=== PATIENT | male | born 1945 | race Caucasian/White ===

== ENCOUNTER 2016-03-20 13:10 | Inpatient (IN) | payer OTHER ==
--- NOTE | ~2016-03-20 | DS ---
Discharge Summary [facility] [address] [place]. [address] NAME: ROLAN FERNANDEZ JR : 47 STATUS : DIS IN PAT#: [id number] AGE: 71 ADM/REG DATE : 03/20/16 MR#: [id number] REPORT SERV DATE: 04/19/16 DICTATED BY: CHATO COLEY DATE: 04/18/16 REPORT STATUS : Draft TRANSCRIBED BY: YAW DATE: 04/18/16 Data Collection from hospitalization DISCHARGE DIAGNOSES: 1. Encephalopathy-multifactorial. 2. History of multiple sclerosis. 3. Parkinsonism. 4. Generalized weakness. 5. Anemia secondary to chronic disease. 6. Severe protein-calorie malnutrition, status post PEG tube placement. 7. Hypertension-controlled. 8. Anxiety and depression. 9. Aspiration pneumonia. CONSULTATIONS: Dr. Julian Phan. KELLY Balderas PROCEDURES: 1. Under GI endoscopy and PEG tube placement, 03/27/2016. 2. CT scan of the brain without contrast, 03/20/2016. 3. MRI of the cervical spine without contrast, 03/24/2016. DISCHARGE MEDICATIONS: Abilify 15 mg at bedtime; liquid tears two drops in each eye daily; Sinemet one tablet at 8 a.m., noon 4 p.m. and 8 p.m.; vitamin D3 1000 units twice a day; Cardura 4 mg daily; Lexapro 15 mg daily; heparin 5000 units subcutaneously every eight hours; multivitamins one tablet daily; Prilosec 40 mg daily as instructed; Tylenol 650 mg orally or rectally as needed; Colace 100 mg twice a day as needed; MiraLAX powder one packet daily as needed; Ultram 50 mg every six hours as needed; Catapres 0.1 mg every eight hours as needed. CONDITION ON DISCHARGE: Stable. DISPOSITION: The patient was discharged to [facility] on tube feedings with activities as instructed. HOSPITAL COURSE: This is a 71-year-old man, who was transferred from [facility] to the [facility] emergency room with the chief complaint of an altered mental status. He has been residing at [facility], where he is followed by [facility] for multiple medical problems. He had had a slow decline over time. He was noted to have increasing weakness and an altered mental status and was transferred to the [facility] emergency room. Workup revealed questionable urinary tract infection along with this altered mental status. He was admitted to the hospital at this time for further evaluation and treatment. Upon admission, he was started on IV antibiotics. IV fluids were begun. DVT precautions were in place. The head of his bed was elevated. The following day, he was seen by Dr. Julian Phan. A CT scan of the brain without contrast had been performed. This demonstrated generalized atrophy, but no clear acute process was seen. We have been asked to evaluate the patient's altered mental status and multiple sclerosis. He was diagnosed with multiple Discharge Summary [place] [id number] [facility] [place]. [address] NAME: ROLAN FERNANDEZ : 47 STATUS : DIS IN PAT#: [id number] AGE: 71 ADM/REG DATE : 03/20/16 MR#: [id number] REPORT SERV DATE: 04/19/16 DICTATED BY: CHATO COLEY DATE: 04/18/16 REPORT STATUS : Draft TRANSCRIBED BY: YAW DATE: 04/18/16 sclerosis about 20 years ago. He had been placed on Avonex and did not appear to have any changes in multiple sclerosis management over the years. This has apparently managed by Dr. Sung, who is not a neurologist. His multiple sclerosis was initially diagnosed by a neurologist, although the patient had not followed up recently with any neurologist and did not appear to have any recent MRI evaluation. Urinalysis demonstrated large leukocyte esterase and negative nitrite. His encephalopathy was felt likely multifactorial. It was felt that his baseline mental status had likely worsened by his recent urinary tract infections. An MRI of the brain with and without contrast was requested for evaluation of the patient's multiple sclerosis. We would also check vitamin B12, TSH, free T4, folate, ammonia, and procalcitonin level. It was recommended that he follow up with Neurology as an outpatient. Avonex was continued. Following day, he denied any complaints of pain. He said he still felt very weak. He has severe protein-calorie malnutrition. Blood pressure was stable. He was evaluated by Physical Therapy. Speech/Language Pathology performed a bedside swallow study. Aspiration precautions were in place. His T-max was 99.8. Aricept was going to be given at bedtime. He became combative when we attempted to get an MRI of the brain. Rocephin was continued. Valium was being given three times a day. Aricept was continued. On 03/24/2016, he seemed to be more alert and conversant. Valium was stopped. Sinemet was being provided. An MRI of the cervical spine without contrast was performed. The next day, it seem like he may have slightly better movement of the bilateral upper extremities and left lower extremity. Sinemet was increased. Aricept was continued. The MRI of the cervical spine showed no significant spinal cord abnormality. Oral intake was still very poor. On 03/26/2016, he was seen by Eric Nava for evaluation and management regarding PEG tube placement. He had had a decreased appetite and was not eating. He had not recovered with his appetite and he continued to lose weight. It was felt that he may need a PEG tube for alternative means of nutrition. The patient agreed to have a PEG tube placed. He is on Levaquin for his urinary tract infection, which was felt to be adequate coverage for preprocedure antibiotics. Plans would be made to place the PEG tube the following day. Heparin was held. On 03/27/2016, he was taken to the endoscopic suite by Dr. Leroy Harden, where he underwent upper GI endoscopy with PEG tube placement. He tolerated this well and there were no complications. He was found to have nonbleeding erosive gastropathy and duodenitis. He had successful PEG tube placement. He did have some gasping respirations alternating with minimal respirations and coarse rhonchi. Sinemet was continued. Neupro patch was going to be added. Aricept was continued as well as Levaquin. Following day, he had some oral dyskinesia after starting Neupro patch. There was no improvement in rigidity. It was felt that he was most likely close to his baseline. The head of his bed was kept elevated at all times. Daily dressing changes were being performed and he had pain all over. He said pain medication was effective. He was completing his IV Levaquin. His antibiotic was changed to Zosyn. Blood cultures were negative. He was tolerating his tube feedings. DVT prophylaxis and fall precautions were in place. He was not even attempting to speak at this time. Palliative care was discussed with the patient's family. Tube feedings were continued via the PEG tube. On 04/07/2016, he still had tremors, but that were slightly better. He could answer yes or no, but not consistently. Requip was increased. Zosyn was continued. The patient does not tolerate dopamine agonists. He had failed Neupro and now Requip. On 04/09/2016, he still had limited verbal communication secondary to his decreased mental status and weakness. He was tolerating tube Discharge Summary [address] [place]. [address] NAME: ROLAN FERNANDEZ JR : 47 STATUS : DIS IN PAT#: [id number] AGE: 71 ADM/REG DATE : 03/20/16 MR#: [id number] REPORT SERV DATE: 04/19/16 DICTATED BY: CHATO COLEY DATE: 04/18/16 REPORT STATUS : Draft TRANSCRIBED BY: YAW DATE: 04/18/16 feedings. IV Protonix was changed to dosing via the PEG tube. His blood pressure had increased over the last 12 hours. Requip was stopped. CD/LD was increased. On 04/10/2016, he seemed to be more awake, but he was still not talking or even attempting to talk. H and H remained stable. Blood pressure was under better control. He completed his IV Zosyn that day. Discharge instructions were given. Due to his improved and stable condition, he was discharged to [facility] with the above-stated instructions. Information collected by: Damaris Melendrez I submit the above information as my discharge summary. JOSÉ MIGUEL/YAW Chato Coley M.D. / [id number] CC: Jeff Lal M.D. [facility] KELLY Balderas
--- NOTE | ~2016-03-20 | EGD ---
EGD REPORT [facility] [address] [place] [address] NAME: JOAO FERNANDEZ JR : 47 STATUS : ADM IN PAT#: [id number] AGE: 71 ADM/REG DATE : 03/20/16 MR#: [id number] REPORT SERV DATE: 03/27/16 DICTATED BY: LEROY DOUGHERTY DATE: 03/27/16 REPORT STATUS : Draft TRANSCRIBED BY: [facility] DATE: 03/27/16 Endoscopy Center Patient Name: Joao Fernandez Date of : 1945 Attending MD: LEROY DOUGHERTY MD Procedure Date No Time: 03/27/2016 Procedure: Upper GI endoscopy Indications: Place PEG because patient is unable to eat, Place PEG due to impaired swallowing, Place PEG due to aspiration risk Medicines: Monitored Anesthesia Care Complications: No immediate complications. Estimated blood loss: Minimal. Procedure: Pre-Anesthesia Assessment: - ASA Grade Assessment: III - A patient with severe systemic disease. After obtaining informed consent, the endoscope was passed under direct vision. Throughout the procedure, the patient's blood pressure, pulse, and oxygen saturations were monitored continuously. The GIF [id number] was introduced through the mouth, and advanced to the second part of duodenum. The upper GI endoscopy was accomplished without difficulty. The patient tolerated the procedure well. Findings: The examined esophagus was normal. Multiple localized, small non-bleeding erosions were found in the gastric antrum. There were no stigmata of recent bleeding. The patient was placed in the supine position for PEG placement. The stomach was insufflated to appose gastric and abdominal malik. A site was located in the body of the stomach with good transillumination and manual external pressure for placement. The abdominal wall was marked and prepped in a sterile manner. The area was anesthetized with 5 mL of 1% lidocaine. The trocar needle was introduced through the abdominal wall and into the stomach under direct endoscopic view. A snare was introduced through the endoscope and opened in the gastric lumen. The guide wire was passed through the trocar and into the open snare. The snare was closed around the guide wire. The endoscope and snare were removed, pulling the wire out through the mouth. A skin incision was made at the site of needle insertion. The externally removable 20 Fr EndoVive Safety gastrostomy tube was lubricated. The G-tube was passed over the guide wire through the mouth, and into the stomach. The trocar needle was removed, and the gastrostomy tube was pulled out from the stomach through the skin. The guide wire was removed, and the external bumper attached to the EGD REPORT [address] [place]. [address] NAME: JOAO FERNANDEZ : [birth year] STATUS : ADM IN [facility]#: [id number] AGE: 71 ADM/REG DATE : 03/20/16 MR#: [id number] REPORT SERV DATE: 03/27/16 DICTATED BY: LEROY DOUGHERTY DATE: 03/27/16 REPORT STATUS : Draft TRANSCRIBED BY: [email or web address] DATE: 03/27/16 gastrostomy tube. The feeding tube was then cut to an appropriate length. The final position of the gastrostomy tube was confirmed by relook endoscopy, and skin marking noted to be 2 cm at the external bumper. The final tension and compression of the abdominal wall by the PEG tube and external bumper were checked and revealed that the bumper was loose and lightly touching the skin. The feeding tube was capped, and the tube site was cleaned and dressed. Estimated blood loss was minimal. Localized mild inflammation characterized by congestion (edema), erosions and erythema was found in the duodenal bulb. Impression: - Non-bleeding erosive gastropathy. - Duodenitis. - An externally removable PEG placement was successfully completed. Recommendation: - Return patient to hospital calles for ongoing care. - Protonix 40 mg daily x 4 weeks - Please follow the post-PEG recommendations including: Nutrition consult for formula and volume, antibiotic ointment to site, change dressing once per day, clean site with soap and water daily and dry thoroughly, remove dressing after 2 weeks, NPO x4 hrs then water today, may use PEG today for meds and water and may use PEG tomorrow for feedings. Procedure Code(s): --- Professional --- 61378, Esophagogastroduodenoscopy, flexible, transoral; with directed placement of percutaneous gastrostomy tube Diagnosis Code(s): --- Professional --- K31.9, Disease of stomach and duodenum, unspecified K29.80, Duodenitis without bleeding R63.3, Feeding difficulties Z43.1, Encounter for attention to gastrostomy R13.10, Dysphagia, unspecified CPT copyright 2013 [employer]. All rights reserved. The codes documented in this report are preliminary and upon rug cleaner hand review may be revised to meet current compliance requirements. Leroy Dougherty MD LEROY DOUGHERTY MD 03/27/2016 10:24 AM EGD REPORT [facility] [address] [place] [address] NAME: JIMJOAO SCHAFFER : 47 STATUS : ADM IN PAT#: [id number] AGE: 71 ADM/REG DATE : 03/20/16 MR#: [id number] REPORT SERV DATE: 03/27/16 DICTATED BY: LEROY DOUGHERTY DATE: 03/27/16 REPORT STATUS : Draft TRANSCRIBED BY: [email or web address] DATE: 03/27/16 This report has been signed electronically. Number of Addenda: 0 Note Initiated On: 03/27/2016 9:48 AM Scope Withdrawal Time 0 hours 0 minutes 0 seconds [address] [place] [address]
--- NOTE | ~2016-03-20 | CN ---
Consultation Report [facility] [address] [place]. [address] NAME: ROLAN FERNANDEZ JR : 47 STATUS : ADM IN PAT#: [id number] AGE: 71 ADM/REG DATE : 03/20/16 MR#: [id number] REPORT SERV DATE: 03/26/16 DICTATED BY: SARAN ESPINOZA DATE: 03/26/16 REPORT STATUS : Draft TRANSCRIBED BY: MODL DATE: 03/26/16 GI CONSULTATION DATE OF CONSULTATION: 03/26/2016 REASON FOR CONSULTATION: Evaluation and management of the patient for PEG tube placement. HISTORY OF PRESENT ILLNESS: Please note the history of present illness has been gathered from the chart as well as the patient's primary nurse. Mr. Fernandez is a 71-year-old male patient, who has been seen by Dr. Ken Geronimo in the past, who was brought to [facility] on 03/20 with a chief complaint of altered mental status from baseline. He has a history of multiple sclerosis. He had been residing in a long-term facility. He was requiring assistance with all of his activities of daily living. However, per reports from his sister, he had been able to ambulate with a walker up until 10/2015. Then, he had a motorized wheelchair. Since that time, he has been basically wheelchair bound with assistance in all activities of daily living. He was found to have a urinary tract infection, decreased appetite, not eating. He was diagnosed here with urinary tract infection. He has not recovered with his appetite and continues to lose weight. Therefore, GI was consulted to place a PEG tube for alternative means of nutrition. I have seen Mr. Fernandez. He is hard to arouse. He agrees to a PEG tube; however, we have tried to contact his sister with no answer. We will tentatively plan on placing PEG tube tomorrow. He is on Levaquin for his urinary tract infection, which is adequate coverage for preprocedure antibiotics; we will leave him on that. PAST MEDICAL HISTORY: Positive for multiple sclerosis, hypertension, depression, debilitation, urinary tract infection, hiatal hernia. PAST SURGICAL HISTORY: Gallbladder. SOCIAL HISTORY: A resident of [place]. No alcohol, tobacco, or illicits noted. Sister is power of corporate attorney. FAMILY HISTORY: Unable to be assessed. REVIEW OF SYSTEMS: Unable to be obtained secondary to the patient's somewhat somnolent status. PERTINENT LABORATORY DATA: Sodium 138, potassium 3.8, BUN is 12, creatinine 0.52. White count 8, hemoglobin 11.4, hematocrit 34.2, platelet count 241. INR 1.2. PHYSICAL EXAMINATION: VITAL SIGNS: Temperature 97.6, pulse 80, respirations 18, and blood pressure 119/68. NEURO: Reveals a chronically debilitated male, resting in bed, who awakens with much prompting. Consultation Report [place] [address] [place]. [address] NAME: ROLAN FERNANDEZ JR : [birth year] STATUS : ADM IN PAT#: [id number] AGE: 71 ADM/REG DATE : 03/20/16 MR#: [id number] REPORT SERV DATE: 03/26/16 DICTATED BY: SARAN ESPINOZA DATE: 03/26/16 REPORT STATUS : Draft TRANSCRIBED BY: YAW DATE: 03/26/16 GENERAL: He is still uncooperative, in no obvious distress. He has notable tremors in the left upper extremity. Debilitated, frail, and cachectic in appearance. HEAD, EARS, EYES, NOSE, AND THROAT: Anicteric. Pupils equal, round, reactive to light and accommodation. Mouth is dry with caking noted in his oral cavity. NECK: No JVD. No palpable nodes. LUNGS: Coarse. Normal respiratory effort exhibited. CARDIOVASCULAR SYSTEM: Regular rate and rhythm. ABDOMEN: Soft, flat, nontender, nondistended. Hypoactive bowel sounds. EXTREMITIES: No edema. Normal distal pulses. SKIN: Warm, dry, and intact. ASSESSMENT: 1. Failure to thrive, debility, weight loss, poor p.o. intake, needs for supplemental nutrition. 2. Encephalopathy, multifactorial. 3. History of multiple sclerosis with generalized weakness, progressively worsened. 4. Urinary tract infection. PLAN: 1. PEG tube on 03/27. 2. He is already on Levaquin, therefore, no other preprocedure antibiotics will be needed. 3. We will consult Nutrition to see for tube feeding recommendations. 4. Hold heparin. CLAY/YAW Saran KELLY Nava / [id number] CC: Jeff Lal M.D.
--- NOTE | ~2016-03-20 | CN ---
Consultation Report [facility] [address] [place]. [address] NAME: ROLAN FERNANDEZ JR : 47 STATUS : ADM IN PAT#: [id number] AGE: 71 ADM/REG DATE : 03/20/16 MR#: [id number] REPORT SERV DATE: 03/22/16 DICTATED BY: DATE: REPORT STATUS : Draft TRANSCRIBED BY: MODL DATE: 03/21/16 NEUROLOGY CONSULTATION DATE OF CONSULTATION: 03/21/2016 REASON FOR CONSULT: Altered mental status, evaluate patient's multiple sclerosis. HISTORY OF PRESENT ILLNESS: This is a 71-year-old male who is not aware of why he is in the hospital and is unable to answer questions. History was obtained through telephone interview with the patient's sister. The patient resides in the long-term facility. The patient requires assistance with activities of daily living secondary to patient's debilitated ability to move hands and difficulties with locomotion. The patient's sister reports the patient is up until August to October of 2015, was able to ambulate with a walker. On 10/2015, the patient obtained motorized wheelchair and since then the patient was mostly wheelchair bound, currently required assistance to move from bed to wheelchair. Is apparently unable to ambulate by himself. The patient, however, baseline, is still able to communicate with the people and is able to answer questions mostly appropriately. The patient, however, was noted by family members at times to have difficulties remember questions and asked questions multiple times at times but does not appear to be severe. The patient, however, over the past few days was noted to be increasingly disoriented and confused and was noted to have stopped eating with decreased appetite, as a result the patient was transferred from assisted living facility to hospital for further evaluation. No reports of fever or chill is otherwise noted. The patient's family member does report the patient has a longstanding tremor that seems to be progressively worse. The family described the tremor mostly occur while the patient was holding on to items, trying to get food to his mouth as well as when pointing to stuff, pointing or reaching for items. The patient's tremor again seems to be getting worse to the point the skilled living facility has now changed the patient's diet to mostly finger foods, so the patient can grab the food without utensils. The patient, otherwise, has been diagnosed with multiple sclerosis roughly 20 years ago. It was unclear when patient's last MRI was. The patient was placed on Avonex and does not appear to have any changes in MS management over the years. The patient's MS is apparently managed by Dr. Sung, who is not a neurologist. The patient's MS was initially diagnosed by a neurologist. Although, the patient has not followed up recently with any neurologist and does not appear to have any recent MRI evaluation, we will follow up for severity and/or progression of MS. PAST MEDICAL HISTORY: The patient's past medical history is otherwise significant apparently for depression as well as multiple sclerosis for which the patient has not had appropriate follow up. FAMILY HISTORY: Unable to be obtained secondary to patient's mental status. REVIEW OF SYSTEMS: Negative except for those mentioned in the HPI. Consultation Report [place] [id number] [facility] [place]. [address] NAME: ROLAN FERNANDEZ JR : 47 STATUS : ADM IN PAT#: [id number] AGE: 71 ADM/REG DATE : 03/20/16 MR#: [id number] REPORT SERV DATE: 03/22/16 DICTATED BY: DATE: REPORT STATUS : Draft TRANSCRIBED BY: MODL DATE: 03/21/16 SOCIAL HISTORY: No reports of tobacco alcohol or recreational drug usage was otherwise reported by family members or by patient. ALLERGIES: THE PATIENT WAS NOTED TO HAVE NO KNOWN DRUG ALLERGIES. HOME MEDICATIONS: Abilify, vitamin D, Colace, Cardura, Lexapro, Avonex, Provigil, Red Yeast capsule, and multivitamin. PHYSICAL EXAMINATION: VITAL SIGNS: Overnight, the patient was noted to have vital signs with T-max of 98.5, heart rate of 73 to 93, respiration of 15 to 22, and blood pressure of 110 to 137 over 57 to 65. GENERAL: The patient is well developed, well nourished, in no acute distress. CARDIOVASCULAR: Regular rate and rhythm. No carotid bruits were otherwise auscultated. PULMONARY: Clear to auscultation bilaterally. NEUROLOGICAL: Generally, the patient alert, oriented to self as well as knows that he is in the hospital. He is oriented to year, otherwise is disoriented regarding month. The patient was noted to be dysarthric and was noted to have difficulties reporting why he is in the hospital. The patient was noted to have psychomotor retardation, bradykinesia. The patient was noted to have decreased attention span at the time of evaluation, is only able to follow simple commands, unable to follow complex commands. Mild dysarthria was also noted at the time of evaluation. Cranial nerves II through XII. Pupils equal, round, and reactive to light. Horizontal and vertical eye movement appeared to be intact with blink-to threat response at the time of evaluation. Facial expression is asymmetrical at the time of evaluation. The patient appeared to have intact sensation to noxious stimulation applied in bilateral jaw. Also, the patient's tongue appeared to be deviated towards the right, palatal movement also is symmetric. The patient appeared to have mild difficulties with hearing. The patient noted to have weakness in bilateral upper extremity, roughly 3/5 in bilateral upper extremity proximally, 4+/5 bilateral upper extremity distally. The patient's right side appeared to be worse than the left side. The patient, in addition, was noted to have 1/5 right lower extremity strength and 3/5 left lower extremity at its strength at the time of evaluation. MUSCULOSKELETAL: Generalized increased muscle tone was noted at the time of evaluation. The patient appeared to have intact sensation to bilateral upper extremity and left lower extremity. Deep tendon reflex was hyperreflexic throughout. Upgoing toe on bilateral plantar reflexes. Coordination and gait were unable to be evaluated due to the patient's difficulty following commands and comprehension difficulties. LABORATORY STUDIES: Demonstrated white blood cell count of 7.5, hemoglobin of 11.2, hematocrit of 34.4, and platelet count of 231. Chemistry Panel: Sodium 141, potassium 3.7, chloride 106, bicarb 25, BUN of 19, creatinine of 0.60, glucose of 69, calcium of 8.9. Urinalysis demonstrated large leukocyte esterase and negative nitrite. CT scan of the brain otherwise demonstrated generalized atrophy, but no clear acute process was seen. Consultation Report [address] [place]. [address] NAME: ROLAN FERNANDEZ : 47 STATUS : ADM IN [facility]#: [id number] AGE: 71 ADM/REG DATE : 03/20/16 MR#: [id number] REPORT SERV DATE: 03/22/16 DICTATED BY: DATE: REPORT STATUS : Draft TRANSCRIBED BY: MODL DATE: 03/21/16 IMPRESSION: 1. Encephalopathy, likely multifactorial. The patient apparently was noted to have some baseline mild memory difficulties that appeared to be more episodic. The patient's baseline mental status is likely worsened by recent UTI. In addition, we will also check MRI of the brain with and without contrast for evaluation of the patient's multiple sclerosis. We will also check laboratory study including vitamin B12, TSH, free T4, folate, ammonia, and procalcitonin level. We will recommend outpatient followup with Neurology afterwards. 2. Multiple sclerosis with associated weakness recently likely secondary to recent urinary tract infection. We will also check MRI of the brain as well as MRI C-spine and T- spine with and without contrast. Meanwhile we are recommending continue Avonex .. RECOMMENDATION: 1. MRI of the brain with and without contrast. 2. MRI of C-spine and T-spine with and without contrast. 3. Vitamin B12, folate, TSH, free T4, thiamine, ammonia, procalcitonin level with morning labs. 4. Continue Avonex for now. 5. UTI treatment as per primary team. [facility]/MODL Julian Phan MD / [id number] CC: Jeff Lal M.D.
--- NOTE | ~2016-03-20 | HP ---
History And Physical [place] [id number] [facility] [place]. [address] NAME: ROLAN FERNANDEZ JR : 47 STATUS : ADM IN PAT#: [id number] AGE: 71 ADM/REG DATE : 03/20/16 MR#: [id number] REPORT SERV DATE: 03/21/16 DICTATED BY: CHATO COLEY DATE: 03/21/16 REPORT STATUS : Draft TRANSCRIBED BY: MODGemini DATE: 03/21/16 DATE OF ADMISSION: 03/20/2016 CHIEF COMPLAINT: Altered mental status. HISTORY OF PRESENT ILLNESS: A 71-year-old white male, transferred from [facility] to [facility] for the above complaint. Due to the patient's decreased mental status, full history and physical exam was unable to be obtained. Chart and staff were reviewed. The patient has been residing at [facility] where he is followed by [facility] for multiple medical problems. Please see old records. The patient has been having a slow decline over time. They state he was noted to have increasing weakness and altered mental status, therefore he was transferred to [facility] Emergency Room. Workup there revealed questionable UTI along with altered mental status, therefore the patient was admitted for IV antibiotics, neurological consult, and further medical workup. The patient's friend was present to assist with the history. Of note is that the patient has been having a slow decline over time, and although he has a diagnosis of multiple sclerosis, he has had no formal good neurological workup according to his friend. Otherwise, no fever or chills, no nausea or vomiting, has had normal decent intake and currently their biggest concern is placing the patient in a higher level of care at the time of discharge, as his sister, [id number], would like to move him closer to her. ALLERGIES: NO KNOWN DRUG ALLERGIES. MEDICATIONS: Please see MAR. PAST MEDICAL HISTORY: No old records were available here at [facility], but chart review does show the patient has his diagnosis of hypertension, some edema, depression, multiple sclerosis, overall debilitation, hiatal hernia, and frequent UTIs. PAST SURGICAL HISTORY: Gallbladder removal in 2016. SOCIAL HISTORY: The patient resides at [place], is followed by [facility], , [employer], no smoking or drinking. His sister is his power of attorney recruiter and does assist with his care. FAMILY HISTORY: Unable to obtain due to the patient's decreased mental status. REVIEW OF SYSTEMS: Unable to obtain due to the patient's decreased mental status. PHYSICAL EXAMINATION: History And Physical [address] [place]. [address] NAME: ROLAN FERNANDEZ JR : 47 STATUS : ADM IN PAT#: [id number] AGE: 71 ADM/REG DATE : 03/20/16 MR#: [id number] REPORT SERV DATE: 03/21/16 DICTATED BY: CHATO COLEY DATE: 03/21/16 REPORT STATUS : Draft TRANSCRIBED BY: YAW DATE: 03/21/16 VITAL SIGNS: Blood pressure 137/63, pulse 90, respirations 20, temperature 97.7, weight 54 kg. GENERAL: White male, sitting up in bed at this time. Being fed by his friend. HEAD: Normocephalic, atraumatic. EYES: Anicteric. ENT: Fair dentition with moist mucosa. NECK: Cachectic. LUNGS: CTA without RRW. HEART: Regular rate and rhythm without murmurs, gallops, or rubs. ABDOMEN: Soft, positive bowel sounds, nontender, nondistended. EXTREMITIES: Wasting is present. NEUROLOGIC: The patient with minimal cooperation with exam, but is able to move all extremities. Does occasionally mumble some words, but is not appropriate. SKIN: Warm and dry, otherwise. LABORATORY DATA: CBC shows WBC 8.6, H and H 12 and 35.4, PLT 244. INR 1.2. Chemistry shows Na 145, K 3.7, CO 105. CO2 of 27, BUN 21, creatinine 0.6, GFR 101, glucose 116. Cardiac enzymes negative. Lactate is 0.9. Urinalysis done by clean catch shows cloudy urine with many white cells and many bacteria. IMAGING DATA: CT of the brain showed no acute infarct or hemorrhage with mild atrophy and chronic white matter changes. Portable chest x-ray done in emergency room shows no acute process. COUNSELING: We will call family-his sister and talk to her. Also talked to his friend here in hospital. CONSULTATION: We will consult Neurology for further evaluation. IMPRESSION: 1. Encephalopathy-questionable etiology. 2. Weakness. 3. History of multiple sclerosis by chart review. 4. Anemia of chronic disease. 5. Pyuria-questionable true urinary tract infection. 6. Severe protein calorie malnutrition. 7. Hypertension. 8. Gait impairment. 9. Gastroesophageal reflux disease. 10.Debilitation. PLAN: 1. We will follow the patient's symptoms, initiate antibiotics and IV fluids. Questionable cause for his encephalopathy. We will follow symptoms and see if it improves. 2. Question reason for his weakness, but have to suspect if he truly does have MS, it may History And Physical [address] [address] NAME: ROLAN FERNANDEZ JR : 47 STATUS : ADM IN PAT#: [id number] AGE: 71 ADM/REG DATE : 03/20/16 MR#: [id number] REPORT SERV DATE: 03/21/16 DICTATED BY: CHATO COLEY DATE: 03/21/16 REPORT STATUS : Draft TRANSCRIBED BY: YAW DATE: 03/21/16 be secondary to his disease. We will follow symptoms and watch closely as the patient is at risk for falls. 3. Watch H and H as the patient is hydrated. He is at risk for acute coronary syndrome with decreased H and H. 4. Follow up on urinalysis, but wonder if clean catch urine is truly not contaminated. We will continue antibiotics and watch closely as the patient is at risk for sepsis. 5. Control blood pressure. He is at risk for CVA. 6. We will consult Neurology for evaluation of his diagnosis of multiple sclerosis, as according to the family, the patient has really had no true neurological workup. 7. Head of bed at 30 degrees as he is at risk for aspiration. 8. DVT precautions. RH/MODL Chato Coley M.D. / [id number] CC: Jeff Lal M.D.
[2016-03-20] MEDS ORDERED: RED YEAS1 PO (13:57)
[2016-03-20] MEDS ORDERED: MULTIPLE VIT PO (13:58)
[2016-03-20] MEDS ORDERED: PROVIGIL2 PO (13:58)
[2016-03-20] MEDS ORDERED: CARDU4 PO (13:58)
[2016-03-20] MEDS ORDERED: VITAMIN D31000 UNIT PO (13:59)
[2016-03-20] MEDS ORDERED: D-MANNOSE PO (13:59)
[2016-03-20] MEDS ORDERED: DSS PO (14:00)
[2016-03-20] MEDS ORDERED: ABILIFY15 PO (14:00)
[2016-03-20] MEDS ORDERED: LEXAPRO10 PO (14:01)
[2016-03-20] MEDS ORDERED: AVONEX IM (14:01)
[2016-03-20 14:15] LABS: BASOPHILS 0.1 %; BASOPHILS ABSOLUTE 0.01 10/3/uL (0.0-0.16); EOSINOPHILS 0.1 %; EOSINOPHILS ABSOLUTE 0.01 10/3/uL (0.0-0.53); HEMATOCRIT 35.4 % (40.0-51.0); IMMATURE GRANULOCYTES 0.2 %; IMMATURE GRANULOCYTES ABSOLUTE 0.02 10/3/uL (0.0-0.11); LYMPHOCYTES 13.1 %; LYMPHOCYTES ABSOLUTE 1.12 10/3/uL (0.67-4.30); MEAN CORPUS HGB CONC 33.9 g/dL (32.0-36.0); MEAN CORPUSCULAR HEMOGLOB 28.9 pg (26.0-34.0); MEAN CORPUSCULAR VOLUME 85.3 fL (80-100); MEAN PLATELET VOLUME 10.2 fL (9.2-13.0); MONOCYTES 8.3 %; MONOCYTES ABSOLUTE 0.71 10/3/uL (0.21-1.20); NEUTROPHILS 78.2 %; NEUTROPHILS ABSOLUTE 6.71 10/3/uL (2.02-8.40); PLATELET COUNT 244 10/3/uL (150-400); RBC DISTRIBUTION WIDTH 13.2 % (12.0-16.0); RED CELL COUNT 4.15 10/6/uL (4.7-6.1)
[2016-03-20 14:16] LABS: ER CBC TAT 0 Hrs 08 Mins; MANUAL DIFF NO %; WHITE BLOOD CELLS 8.6 10/3/uL (4.5-10.5)
[2016-03-20 14:23] LABS: INTERNATIONAL NORMAL RATI 1.2 UNITS (-); PARTIAL THROMBO TIME 26.9 SEC (22.5-37.2); PROTIME (NOT ORD) 14.6 SEC (12.0-14.5)
[2016-03-20 14:30] LABS: BUN (BLOOD UREA NITROGEN) 21 MG/DL (6-23); CALCIUM, SERUM 8.9 MG/DL (8.5-10.4); CHEST PAIN PROFILE TAT 0 Hrs 22 Mins; CHLORIDE, SERUM 105 MMOL/L (96-112); CO2 (CARBON DIOXIDE) 27 MMOL/L (24-34); CREATININE 0.62 MG/DL (0.70-1.30); GFR AFRICAN AMERICAN 116 ML/MIN (>=60); GFR NON AFRICAN AMERICAN 101 ML/MIN (>=60); GLUCOSE, SERUM 72 MG/DL (60-99); POTASSIUM, SERUM 3.7 MMOL/L (3.5-5.3); SODIUM, SERUM 145 MMOL/L (135-148); TROPONIN I <0.02 NG/ML (<0.05)
[2016-03-20 14:47] LABS: ASCORBIC ACID (UR NOT ORDER) 40 (NEG); BILIRUBIN, URINE NEGATIVE (NEG); ER URINALYSIS TAT 0 Hrs 09 Mins; KETONE, URINE 80 MG/DL (NEG); LEUKOCYTE ESTERASE(NOT OR LARGE (NEG); NITRITE (URINE) NEG (NEG)
[2016-03-20 14:48] LABS: WBC (NOT ORDERED) (RFLEX) > 182 (0-5)
[2016-03-20 17:21] LABS: LACTATE 0.9 MMOL/L (0.3-2.4)
[2016-03-21 06:44] LABS: BASOPHILS 0.1 %; BASOPHILS ABSOLUTE 0.01 10/3/uL (0.0-0.16); EOSINOPHILS 0.4 %; EOSINOPHILS ABSOLUTE 0.03 10/3/uL (0.0-0.53); HEMATOCRIT 34.4 % (40.0-51.0); HEMOGLOBIN 11.2 g/dL (13.6-17.8); IMMATURE GRANULOCYTES 0.3 %; IMMATURE GRANULOCYTES ABSOLUTE 0.02 10/3/uL (0.0-0.11); LYMPHOCYTES 15.6 %; LYMPHOCYTES ABSOLUTE 1.16 10/3/uL (0.67-4.30); MEAN CORPUS HGB CONC 32.6 g/dL (32.0-36.0); MEAN CORPUSCULAR HEMOGLOB 28.6 pg (26.0-34.0); MEAN PLATELET VOLUME 10.4 fL (9.2-13.0); MONOCYTES 9.3 %; MONOCYTES ABSOLUTE 0.69 10/3/uL (0.21-1.20); NEUTROPHILS 74.3 %; NEUTROPHILS ABSOLUTE 5.54 10/3/uL (2.02-8.40); PLATELET COUNT 231 10/3/uL (150-400); RBC DISTRIBUTION WIDTH 13.3 % (12.0-16.0); RED CELL COUNT 3.91 10/6/uL (4.7-6.1); WHITE BLOOD CELLS 7.5 10/3/uL (4.5-10.5)
[2016-03-21 06:45] LABS: MANUAL DIFF NO %
[2016-03-21 06:53] LABS: BUN (BLOOD UREA NITROGEN) 19 MG/DL (6-23); CALCIUM, SERUM 8.9 MG/DL (8.5-10.4); CHLORIDE, SERUM 106 MMOL/L (96-112); CO2 (CARBON DIOXIDE) 25 MMOL/L (24-34); GFR AFRICAN AMERICAN 118 ML/MIN (>=60); GFR NON AFRICAN AMERICAN 102 ML/MIN (>=60); GLUCOSE, SERUM 69 MG/DL (60-99); POTASSIUM, SERUM 3.7 MMOL/L (3.5-5.3); SODIUM, SERUM 141 MMOL/L (135-148)
[2016-03-22 06:02] LABS: BASOPHILS 0.1 %; BASOPHILS ABSOLUTE 0.01 10/3/uL (0.0-0.16); EOSINOPHILS 1.2 %; HEMATOCRIT 35.3 % (40.0-51.0); HEMOGLOBIN 11.6 g/dL (13.6-17.8); IMMATURE GRANULOCYTES 0.2 %; IMMATURE GRANULOCYTES ABSOLUTE 0.02 10/3/uL (0.0-0.11); LYMPHOCYTES 14.2 %; LYMPHOCYTES ABSOLUTE 1.19 10/3/uL (0.67-4.30); MEAN CORPUS HGB CONC 32.9 g/dL (32.0-36.0); MEAN CORPUSCULAR HEMOGLOB 28.9 pg (26.0-34.0); MEAN CORPUSCULAR VOLUME 87.8 fL (80-100); MEAN PLATELET VOLUME 10.9 fL (9.2-13.0); MONOCYTES 10.8 %; NEUTROPHILS 73.5 %; NEUTROPHILS ABSOLUTE 6.15 10/3/uL (2.02-8.40); PLATELET COUNT 233 10/3/uL (150-400); RBC DISTRIBUTION WIDTH 13.1 % (12.0-16.0); RED CELL COUNT 4.02 10/6/uL (4.7-6.1); WHITE BLOOD CELLS 8.4 10/3/uL (4.5-10.5)
[2016-03-22 06:03] LABS: PREALBUMIN 10.7 MG/DL (17.0-43.0)
[2016-03-22 06:08] LABS: MANUAL DIFF NO %
[2016-03-22 06:18] LABS: BUN (BLOOD UREA NITROGEN) 16 MG/DL (6-23); CALCIUM, SERUM 8.7 MG/DL (8.5-10.4); CHLORIDE, SERUM 101 MMOL/L (96-112); CO2 (CARBON DIOXIDE) 31 MMOL/L (24-34); CREATININE 0.67 MG/DL (0.70-1.30); FOLATE 17.9 NG/ML (>5.2); FREE T4 1.21 NG/DL (0.76-1.46); GFR AFRICAN AMERICAN 113 ML/MIN (>=60); GFR NON AFRICAN AMERICAN 97 ML/MIN (>=60); GLUCOSE, SERUM 92 MG/DL (60-99); SODIUM, SERUM 139 MMOL/L (135-148)
[2016-03-22 06:46] LABS: PROCALCITONIN <0.05 ng/mL (<0.5)
[2016-03-23 07:43] LABS: C-REACTIVE PROTEIN 41.9 MG/L (<8.0)
[2016-03-23 07:44] LABS: ULTRASENSITIVE TSH 2.94 MCIU/ML (0.358-3.740)
[2016-03-24 06:12] LABS: BASOPHILS 0 %; EOSINOPHILS 0.2 %; EOSINOPHILS ABSOLUTE 0.01 10/3/uL (0.0-0.53); HEMATOCRIT 33.7 % (40.0-51.0); HEMOGLOBIN 11.3 g/dL (13.6-17.8); IMMATURE GRANULOCYTES 0.3 %; IMMATURE GRANULOCYTES ABSOLUTE 0.02 10/3/uL (0.0-0.11); LYMPHOCYTES 11.4 %; LYMPHOCYTES ABSOLUTE 0.66 10/3/uL (0.67-4.30); MEAN CORPUS HGB CONC 33.5 g/dL (32.0-36.0); MEAN CORPUSCULAR HEMOGLOB 28.6 pg (26.0-34.0); MEAN CORPUSCULAR VOLUME 85.3 fL (80-100); MEAN PLATELET VOLUME 10.7 fL (9.2-13.0); MONOCYTES 10.7 %; MONOCYTES ABSOLUTE 0.62 10/3/uL (0.21-1.20); NEUTROPHILS 77.4 %; PLATELET COUNT 221 10/3/uL (150-400); RBC DISTRIBUTION WIDTH 12.8 % (12.0-16.0); RED CELL COUNT 3.95 10/6/uL (4.7-6.1); WHITE BLOOD CELLS 5.8 10/3/uL (4.5-10.5)
[2016-03-24 06:13] LABS: MANUAL DIFF NO %
[2016-03-24 06:34] LABS: ALKALINE PHOSPHATASE 54 U/L (45-117); C-REACTIVE PROTEIN 73.9 MG/L (<8.0); CALCIUM, SERUM 8.6 MG/DL (8.5-10.4); CHLORIDE, SERUM 101 MMOL/L (96-112); CPK 97 U/L (0-200); CREATININE 0.47 MG/DL (0.70-1.30); GFR AFRICAN AMERICAN 131 ML/MIN (>=60); GFR NON AFRICAN AMERICAN 113 ML/MIN (>=60); POTASSIUM, SERUM 3.8 MMOL/L (3.5-5.3); SGOT(AST) 27 U/L (5-40); SGPT(ALT) 29 U/L (5-65); SODIUM, SERUM 139 MMOL/L (135-148); TOTAL PROTEIN 6.2 G/DL (6.0-8.5)
[2016-03-24 06:35] LABS: A/G RATIO 0.7 (0.7-1.9); ALBUMIN 2.6 G/DL (3.5-5.0); BUN (BLOOD UREA NITROGEN) 11 MG/DL (6-23); CO2 (CARBON DIOXIDE) 25 MMOL/L (24-34); GLOBULIN 3.6 G/DL (2.5-4.1); GLUCOSE, SERUM 73 MG/DL (60-99)
[2016-03-24 08:55] LABS: SED RATE 38 MM/HR (0-15)
[2016-03-24 21:40] LABS: ASCORBIC ACID (UR NOT ORDER) NEG (NEG); BILIRUBIN, URINE NEGATIVE (NEG); KETONE, URINE 80 MG/DL (NEG); LEUKOCYTE ESTERASE(NOT OR SMALL (NEG); WBC (NOT ORDERED) (RFLEX) 8 (0-5)
[2016-03-25 06:41] LABS: BASOPHILS 0.3 %; BASOPHILS ABSOLUTE 0.02 10/3/uL (0.0-0.16); EOSINOPHILS 0.5 %; EOSINOPHILS ABSOLUTE 0.04 10/3/uL (0.0-0.53); HEMATOCRIT 34.2 % (40.0-51.0); HEMOGLOBIN 11.4 g/dL (13.6-17.8); IMMATURE GRANULOCYTES 0.3 %; IMMATURE GRANULOCYTES ABSOLUTE 0.02 10/3/uL (0.0-0.11); LYMPHOCYTES 10.9 %; LYMPHOCYTES ABSOLUTE 0.87 10/3/uL (0.67-4.30); MEAN CORPUS HGB CONC 33.3 g/dL (32.0-36.0); MEAN CORPUSCULAR HEMOGLOB 28.7 pg (26.0-34.0); MEAN CORPUSCULAR VOLUME 86.1 fL (80-100); MEAN PLATELET VOLUME 10.7 fL (9.2-13.0); MONOCYTES 11.4 %; MONOCYTES ABSOLUTE 0.91 10/3/uL (0.21-1.20); NEUTROPHILS 76.6 %; NEUTROPHILS ABSOLUTE 6.11 10/3/uL (2.02-8.40); PLATELET COUNT 241 10/3/uL (150-400); RBC DISTRIBUTION WIDTH 12.8 % (12.0-16.0); RED CELL COUNT 3.97 10/6/uL (4.7-6.1)
[2016-03-25 06:44] LABS: MANUAL DIFF NO %
[2016-03-25 06:55] LABS: BUN (BLOOD UREA NITROGEN) 12 MG/DL (6-23); CALCIUM, SERUM 8.6 MG/DL (8.5-10.4); CHLORIDE, SERUM 101 MMOL/L (96-112); CO2 (CARBON DIOXIDE) 27 MMOL/L (24-34); CREATININE 0.52 MG/DL (0.70-1.30); GFR AFRICAN AMERICAN 125 ML/MIN (>=60); GFR NON AFRICAN AMERICAN 108 ML/MIN (>=60); GLUCOSE, SERUM 85 MG/DL (60-99); POTASSIUM, SERUM 3.8 MMOL/L (3.5-5.3); SODIUM, SERUM 138 MMOL/L (135-148)
[2016-03-25 07:58] LABS: PROCALCITONIN 0.05 ng/mL (<0.5)
[2016-03-25 21:29] LABS: THIAMINE 7.7 nmol/L (())
[2016-03-27 12:40] LABS: BASOPHILS 0.2 %; BASOPHILS ABSOLUTE 0.01 10/3/uL (0.0-0.16); EOSINOPHILS 0.2 %; EOSINOPHILS ABSOLUTE 0.01 10/3/uL (0.0-0.53); HEMATOCRIT 35.6 % (40.0-51.0); HEMOGLOBIN 12.1 g/dL (13.6-17.8); IMMATURE GRANULOCYTES 0.2 %; IMMATURE GRANULOCYTES ABSOLUTE 0.01 10/3/uL (0.0-0.11); LYMPHOCYTES 15.3 %; LYMPHOCYTES ABSOLUTE 0.75 10/3/uL (0.67-4.30); MANUAL DIFF NO %; MEAN CORPUSCULAR HEMOGLOB 28.9 pg (26.0-34.0); MEAN PLATELET VOLUME 10.2 fL (9.2-13.0); MONOCYTES 11.9 %; MONOCYTES ABSOLUTE 0.58 10/3/uL (0.21-1.20); NEUTROPHILS 72.2 %; NEUTROPHILS ABSOLUTE 3.53 10/3/uL (2.02-8.40); PLATELET COUNT 261 10/3/uL (150-400); RBC DISTRIBUTION WIDTH 12.7 % (12.0-16.0); RED CELL COUNT 4.19 10/6/uL (4.7-6.1); WHITE BLOOD CELLS 4.9 10/3/uL (4.5-10.5)
[2016-03-27 12:48] LABS: INTERNATIONAL NORMAL RATI 1.2 UNITS (-); PROTIME (NOT ORD) 14.6 SEC (12.0-14.5)
[2016-03-27 13:18] LABS: A/G RATIO 0.8 (0.7-1.9); ALBUMIN 2.8 G/DL (3.5-5.0); ALKALINE PHOSPHATASE 53 U/L (45-117); BUN (BLOOD UREA NITROGEN) 11 MG/DL (6-23); CALCIUM, SERUM 8.9 MG/DL (8.5-10.4); CHLORIDE, SERUM 101 MMOL/L (96-112); CO2 (CARBON DIOXIDE) 28 MMOL/L (24-34); CREATININE 0.49 MG/DL (0.70-1.30); GFR AFRICAN AMERICAN 128 ML/MIN (>=60); GFR NON AFRICAN AMERICAN 111 ML/MIN (>=60); GLOBULIN 3.6 G/DL (2.5-4.1); GLUCOSE, SERUM 83 MG/DL (60-99); PHOSPHORUS, SERUM 3.2 MG/DL (2.5-4.5); POTASSIUM, SERUM 3.6 MMOL/L (3.5-5.3); PREALBUMIN 9.2 MG/DL (17.0-43.0); SGOT(AST) 27 U/L (5-40); SGPT(ALT) 25 U/L (5-65); SODIUM, SERUM 138 MMOL/L (135-148); TOTAL BILIRUBIN 0.4 MG/DL (0-1.2); TOTAL PROTEIN 6.4 G/DL (6.0-8.5)
[2016-03-27 16:35] LABS: BE (BASE EXCESS) 4.1 MEQ/L (0 +/- 2.5); CARBOXYHEMOGLOBIN 0.4 % (0-3); HCO3 (ACTUAL BICARBONATE) 28.4 MEQ/L (23-27); HEMOBLOGIN CONTENT 13.1 G/DL (14-18); INSTRUMENT SERIAL # 8083; METHEMOGLOBIN 0.2 % (0-3); O2 CONTENT 17.1 VOL% (18-24); PCO2 (CO2 TENSION) 41 MMHG (35-45); PO2 (O2 TENSION) 63 MMHG (79-93); SAMPLE Arterial; pH 7.46 (7.37-7.43)
[2016-03-28 07:26] LABS: BUN (BLOOD UREA NITROGEN) 10 MG/DL (6-23); CALCIUM, SERUM 8.5 MG/DL (8.5-10.4); CHLORIDE, SERUM 102 MMOL/L (96-112); CO2 (CARBON DIOXIDE) 26 MMOL/L (24-34); CREATININE 0.44 MG/DL (0.70-1.30); GFR AFRICAN AMERICAN 134 ML/MIN (>=60); GFR NON AFRICAN AMERICAN 116 ML/MIN (>=60); GLUCOSE, SERUM 80 MG/DL (60-99); POTASSIUM, SERUM 3.9 MMOL/L (3.5-5.3); SODIUM, SERUM 140 MMOL/L (135-148)
[2016-03-31 06:38] LABS: BASOPHILS 0.1 %; BASOPHILS ABSOLUTE 0.01 10/3/uL (0.0-0.16); EOSINOPHILS 0.1 %; EOSINOPHILS ABSOLUTE 0.01 10/3/uL (0.0-0.53); HEMOGLOBIN 10.3 g/dL (13.6-17.8); IMMATURE GRANULOCYTES 0.2 %; IMMATURE GRANULOCYTES ABSOLUTE 0.02 10/3/uL (0.0-0.11); LYMPHOCYTES 5.2 %; LYMPHOCYTES ABSOLUTE 0.57 10/3/uL (0.67-4.30); MEAN CORPUS HGB CONC 33.2 g/dL (32.0-36.0); MEAN CORPUSCULAR HEMOGLOB 28.4 pg (26.0-34.0); MEAN CORPUSCULAR VOLUME 85.4 fL (80-100); MEAN PLATELET VOLUME 10.2 fL (9.2-13.0); MONOCYTES 7.2 %; MONOCYTES ABSOLUTE 0.79 10/3/uL (0.21-1.20); NEUTROPHILS 87.2 %; PLATELET COUNT 220 10/3/uL (150-400); RBC DISTRIBUTION WIDTH 13.7 % (12.0-16.0); RED CELL COUNT 3.63 10/6/uL (4.7-6.1)
[2016-03-31 06:43] LABS: MANUAL DIFF NO %; WHITE BLOOD CELLS 10.9 10/3/uL (4.5-10.5)
[2016-03-31 06:54] LABS: BUN (BLOOD UREA NITROGEN) 13 MG/DL (6-23); CALCIUM, SERUM 8.4 MG/DL (8.5-10.4); CHLORIDE, SERUM 103 MMOL/L (96-112); CREATININE 0.52 MG/DL (0.70-1.30); GFR AFRICAN AMERICAN 125 ML/MIN (>=60); GFR NON AFRICAN AMERICAN 108 ML/MIN (>=60); POTASSIUM, SERUM 3.8 MMOL/L (3.5-5.3); SODIUM, SERUM 141 MMOL/L (135-148)
[2016-03-31 06:55] LABS: CO2 (CARBON DIOXIDE) 31 MMOL/L (24-34); GLUCOSE, SERUM 122 MG/DL (60-99)
[2016-04-01 05:28] LABS: BASOPHILS 0.1 %; BASOPHILS ABSOLUTE 0.01 10/3/uL (0.0-0.16); EOSINOPHILS 0.2 %; EOSINOPHILS ABSOLUTE 0.02 10/3/uL (0.0-0.53); HEMATOCRIT 32.1 % (40.0-51.0); HEMOGLOBIN 10.5 g/dL (13.6-17.8); IMMATURE GRANULOCYTES 0.4 %; IMMATURE GRANULOCYTES ABSOLUTE 0.04 10/3/uL (0.0-0.11); LYMPHOCYTES 8.4 %; LYMPHOCYTES ABSOLUTE 0.94 10/3/uL (0.67-4.30); MEAN CORPUS HGB CONC 32.7 g/dL (32.0-36.0); MEAN CORPUSCULAR HEMOGLOB 27.8 pg (26.0-34.0); MEAN CORPUSCULAR VOLUME 84.9 fL (80-100); MEAN PLATELET VOLUME 10.3 fL (9.2-13.0); MONOCYTES 8.7 %; MONOCYTES ABSOLUTE 0.97 10/3/uL (0.21-1.20); NEUTROPHILS 82.2 %; NEUTROPHILS ABSOLUTE 9.16 10/3/uL (2.02-8.40); PLATELET COUNT 226 10/3/uL (150-400); RBC DISTRIBUTION WIDTH 13.9 % (12.0-16.0); RED CELL COUNT 3.78 10/6/uL (4.7-6.1); WHITE BLOOD CELLS 11.1 10/3/uL (4.5-10.5)
[2016-04-01 05:29] LABS: MANUAL DIFF NO %
[2016-04-01 05:40] LABS: BUN (BLOOD UREA NITROGEN) 14 MG/DL (6-23); CALCIUM, SERUM 8.5 MG/DL (8.5-10.4); CHLORIDE, SERUM 104 MMOL/L (96-112); CO2 (CARBON DIOXIDE) 29 MMOL/L (24-34); CREATININE 0.43 MG/DL (0.70-1.30); GFR AFRICAN AMERICAN 135 ML/MIN (>=60); GFR NON AFRICAN AMERICAN 117 ML/MIN (>=60); GLUCOSE, SERUM 114 MG/DL (60-99); POTASSIUM, SERUM 3.9 MMOL/L (3.5-5.3); SODIUM, SERUM 141 MMOL/L (135-148)
[2016-04-03 05:53] LABS: BASOPHILS 0.2 %; BASOPHILS ABSOLUTE 0.01 10/3/uL (0.0-0.16); EOSINOPHILS 1.3 %; EOSINOPHILS ABSOLUTE 0.08 10/3/uL (0.0-0.53); HEMATOCRIT 33.4 % (40.0-51.0); IMMATURE GRANULOCYTES 0.2 %; IMMATURE GRANULOCYTES ABSOLUTE 0.01 10/3/uL (0.0-0.11); LYMPHOCYTES ABSOLUTE 1.07 10/3/uL (0.67-4.30); MEAN CORPUS HGB CONC 32.9 g/dL (32.0-36.0); MEAN CORPUSCULAR HEMOGLOB 28.5 pg (26.0-34.0); MEAN CORPUSCULAR VOLUME 86.5 fL (80-100); MEAN PLATELET VOLUME 10.3 fL (9.2-13.0); MONOCYTES 12.2 %; MONOCYTES ABSOLUTE 0.77 10/3/uL (0.21-1.20); NEUTROPHILS 69.1 %; NEUTROPHILS ABSOLUTE 4.35 10/3/uL (2.02-8.40); PLATELET COUNT 269 10/3/uL (150-400); RBC DISTRIBUTION WIDTH 13.6 % (12.0-16.0); RED CELL COUNT 3.86 10/6/uL (4.7-6.1)
[2016-04-03 05:56] LABS: MANUAL DIFF NO %; WHITE BLOOD CELLS 6.3 10/3/uL (4.5-10.5)
[2016-04-03 06:00] LABS: BUN (BLOOD UREA NITROGEN) 13 MG/DL (6-23); CALCIUM, SERUM 8.5 MG/DL (8.5-10.4); CHLORIDE, SERUM 99 MMOL/L (96-112); CO2 (CARBON DIOXIDE) 30 MMOL/L (24-34); CREATININE 0.46 MG/DL (0.70-1.30); GFR AFRICAN AMERICAN 132 ML/MIN (>=60); GFR NON AFRICAN AMERICAN 114 ML/MIN (>=60); GLUCOSE, SERUM 107 MG/DL (60-99); SODIUM, SERUM 139 MMOL/L (135-148)
[2016-04-07 04:29] LABS: BASOPHILS 0.2 %; BASOPHILS ABSOLUTE 0.02 10/3/uL (0.0-0.16); HEMATOCRIT 34.2 % (40.0-51.0); HEMOGLOBIN 11.4 g/dL (13.6-17.8); IMMATURE GRANULOCYTES 0.3 %; IMMATURE GRANULOCYTES ABSOLUTE 0.03 10/3/uL (0.0-0.11); LYMPHOCYTES 10.9 %; LYMPHOCYTES ABSOLUTE 1.08 10/3/uL (0.67-4.30); MEAN CORPUS HGB CONC 33.3 g/dL (32.0-36.0); MEAN CORPUSCULAR HEMOGLOB 28.8 pg (26.0-34.0); MEAN CORPUSCULAR VOLUME 86.4 fL (80-100); MEAN PLATELET VOLUME 9.9 fL (9.2-13.0); MONOCYTES 8.8 %; MONOCYTES ABSOLUTE 0.87 10/3/uL (0.21-1.20); NEUTROPHILS 78.8 %; NEUTROPHILS ABSOLUTE 7.82 10/3/uL (2.02-8.40); RBC DISTRIBUTION WIDTH 13.5 % (12.0-16.0); RED CELL COUNT 3.96 10/6/uL (4.7-6.1)
[2016-04-07 04:32] LABS: MANUAL DIFF NO %; PLATELET COUNT 380 10/3/uL (150-400); WHITE BLOOD CELLS 9.9 10/3/uL (4.5-10.5)
[2016-04-07 04:43] LABS: CHLORIDE, SERUM 104 MMOL/L (96-112); CO2 (CARBON DIOXIDE) 29 MMOL/L (24-34); CREATININE 0.61 MG/DL (0.70-1.30); GFR AFRICAN AMERICAN 117 ML/MIN (>=60); GFR NON AFRICAN AMERICAN 101 ML/MIN (>=60); GLUCOSE, SERUM 111 MG/DL (60-99); POTASSIUM, SERUM 3.8 MMOL/L (3.5-5.3); SODIUM, SERUM 141 MMOL/L (135-148)
[2016-04-07 04:50] LABS: BUN (BLOOD UREA NITROGEN) 19 MG/DL (6-23)
[2016-04-08 06:58] LABS: BASOPHILS 0.2 %; BASOPHILS ABSOLUTE 0.02 10/3/uL (0.0-0.16); EOSINOPHILS 0.9 %; EOSINOPHILS ABSOLUTE 0.08 10/3/uL (0.0-0.53); HEMOGLOBIN 11.2 g/dL (13.6-17.8); IMMATURE GRANULOCYTES 0.3 %; IMMATURE GRANULOCYTES ABSOLUTE 0.03 10/3/uL (0.0-0.11); LYMPHOCYTES 16.1 %; LYMPHOCYTES ABSOLUTE 1.47 10/3/uL (0.67-4.30); MEAN CORPUS HGB CONC 32.9 g/dL (32.0-36.0); MEAN CORPUSCULAR HEMOGLOB 28.4 pg (26.0-34.0); MEAN CORPUSCULAR VOLUME 86.3 fL (80-100); MEAN PLATELET VOLUME 9.8 fL (9.2-13.0); MONOCYTES 7.2 %; MONOCYTES ABSOLUTE 0.66 10/3/uL (0.21-1.20); NEUTROPHILS 75.3 %; NEUTROPHILS ABSOLUTE 6.88 10/3/uL (2.02-8.40); PLATELET COUNT 380 10/3/uL (150-400); RBC DISTRIBUTION WIDTH 13.7 % (12.0-16.0); RED CELL COUNT 3.94 10/6/uL (4.7-6.1); WHITE BLOOD CELLS 9.1 10/3/uL (4.5-10.5)
[2016-04-08 07:07] LABS: MANUAL DIFF NO %
[2016-04-08 07:28] LABS: BUN (BLOOD UREA NITROGEN) 23 MG/DL (6-23); CALCIUM, SERUM 9.4 MG/DL (8.5-10.4); CHLORIDE, SERUM 107 MMOL/L (96-112); CO2 (CARBON DIOXIDE) 28 MMOL/L (24-34); CREATININE 0.58 MG/DL (0.70-1.30); GFR AFRICAN AMERICAN 120 ML/MIN (>=60); GFR NON AFRICAN AMERICAN 103 ML/MIN (>=60); GLUCOSE, SERUM 115 MG/DL (60-99); POTASSIUM, SERUM 3.9 MMOL/L (3.5-5.3); SODIUM, SERUM 144 MMOL/L (135-148)
== END 2016-04-10 18:36 | DRG 689 ==
LOC: ER 13:10 → 4SO 18:09
PROVIDERS: Family Medicine; Internal Medicine Gastroenterology; Nurse Practitioner; Nurse Practitioner Family; Psychiatry & Neurology Neurology
PROC: 0DH63UZ Insertion of Feeding Device into Stomach, Percutaneous Approach (ICD-10-PCS; principal; 2016-03-27 09:00)
DX: N39.0 Urinary tract infection, site not specified (principal); Z51.5 Encounter for palliative care; G93.40 Encephalopathy, unspecified; J96.00 Acute respiratory failure, unspecified whether with hypoxia or hypercapnia; J69.0 Pneumonitis due to inhalation of food and vomit; E43 Unspecified severe protein-calorie malnutrition; G35 Multiple sclerosis; R13.10 Dysphagia, unspecified; I10 Essential (primary) hypertension; R53.1 Weakness; D63.8 Anemia in other chronic diseases classified elsewhere; K21.9 Gastro-esophageal reflux disease without esophagitis; R53.81 Other malaise; R62.7 Adult failure to thrive; F03.90 Unspecified dementia, unspecified severity, without behavioral disturbance, psychotic disturbance, mood disturbance, and anxiety; K29.80 Duodenitis without bleeding; B95.2 Enterococcus as the cause of diseases classified elsewhere; F41.9 Anxiety disorder, unspecified; F32.9 Major depressive disorder, single episode, unspecified; G20 Parkinson's disease; Z66 Do not resuscitate
CPT/HCPCS: 70450; 70551-52; 71010; 72141; 80048; 80053; 81001; 82140; 82550; 82607; 82746; 82805; 82962; 83516; 83605; 83735; 84100; 84134; 84145; 84425; 84439; 84443; 84484; 85025; 85610; 85652; 85730; 86140; 87040; 87077; 87086; 87186; 92610-GN; 93005; 97110-GP; 97162-GP; 97164-GP; 97530-GP; 99285; A9270-GY; C9113; J1956; J2405; J2543